=== PATIENT | male | born 1970 | race African-American/Black ===

== ENCOUNTER 2022-04-09 14:52 | Emergency (ER) | payer BC, OTHER ==
[2022-04-09] MEDS ORDERED: Sodium Bicarb 50 MEQ/50 ML Abboject 8.4% SYRINGE ONE (14:53)
[2022-04-09] MEDS ORDERED: Calcium Chloride 1 GM/10 ML Abboject SYRINGE ONE (14:53)
[2022-04-09] MEDS ORDERED: Atropine Sulfate 1 mg/10 ml Syringe ONE (14:53)
[2022-04-09] MEDS ORDERED: EPINEPHrine 1 MG/10 ML Abboject SYRINGE ONE (14:53)
== END 2022-04-09 15:11 | disposition expired ==
LOC: ERS 14:52
DX: I46.9 Cardiac arrest, cause unspecified (principal); E11.9 Type 2 diabetes mellitus without complications
CPT/HCPCS: 31500; 36556; J0171; J0461